=== PATIENT | male | born 2000 | race Caucasian/White ===

== ENCOUNTER 2019-08-20 15:42 | Emergency (ER) | payer OTHER, SELFPAY ==
--- NOTE | ~2019-08-20 | CT_ITS ---
EXAMINATION: CT abdomen pelvis w con DATE: 08/20/2019 19:06 INDICATION: Right lower quadrant abdominal pain. TECHNIQUE: Computed tomography (CT) of the abdomen and pelvis was performed with 100 mL Omnipaque-350 intravenous contrast. Automated exposure control and iterative reconstruction technique were employe d. The dose-length product was 184.48 mGy-cm. COMPARISON: None FINDINGS: Lung bases are clear. Visualized inferior heart is normal. No pericardial or pleural effusion. Liver, gallbladder, spleen, pancreas, right kidney and bilateral adrenal glands are normal. There are coupl e small wedge-shaped regions of decreased enhancement in the left kidney which could be related to pr ior infarct or area arthritis, either acute or chronic. No bowel obstruction or abnormal bowel wall t hickening. There is subtle stranding in the fat in the anterior right hemipelvis which was positione d caudal to the normal-appearing pancreas. The stranding in the fat extends into a small right inguin al hernia. Bladder is normal. No free intraperitoneal gas or fluid. No pathologically enlarged abdomi nal or pelvic lymphadenopathy. Lumbar levoscoliosis. Osteochondromas at the bilateral femoral necks. IMPRESSION: 1. Fat-containing right inguinal hernia with subtle stranding of the fat immediately proximal to and within the hernia. The nearby appendix appears normal. 2. A couple small wedge-shaped regions of hypoenhancement in the left kidney which could represent se quela of prior infarcts or age-indeterminate infection. Correlate with urinalysis. 3. 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 Reviewed, dictated and finalized at location A. [employer] IMPRESSION: 1. Fat-containing right inguinal hernia with subtle stranding of the fat immedi ately proximal to and within the hernia. The nearby appendix appears normal. 2. A couple small wedge-shaped regions of hypoenhancement in the left kidney wh ich could represent sequela of prior infarcts or age-indeterminate infection. C orrelate with urinalysis. 3. 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
[2019-08-20 16:52] VITALS: BP 130/76; PULSE 85; RESP 16; TEMP 37.1; O2SAT 99
[2019-08-20 17:04] LABS: Basophils Percent Auto 0.5 % (0.2-1.2); Eosinophils Absolute Auto 0.1 K/mm3 (0-0.3); Eosinophils Percent Auto 1.5 % (0-4.4); Hematocrit 46.7 % (42.0-52.0); Hemoglobin 15.2 g/dL (14.0-18.0); Immature Granulocyte Absolute 0.02 K/mm3 (0.00-0.031); Immature Granulocyte Percent A 0.2 % (0-0.5); Lymphocytes Absolute Auto 1.94 K/mm3 (0.9-3.2); Lymphocytes Percent Auto 23.7 % (18.3-44.2); Mean Corpuscular HGB Conc 32.5 g/dl (32-36); Mean Corpuscular Hemoglobin 29.3 pg (26-34); Mean Corpuscular Volume 90.2 fl (80-100); Mean Platelet Volume 9.1 fl (7.4-10.4); Monocytes Absolute Auto 0.6 K/mm3 (0.1-0.6); Monocytes Percent Auto 7.8 % (2.6-8.5); Neutrophils Absolute Auto 5.4 K/mm3 (1.3-6.7); Neutrophils Percent Auto 66.3 % (45.5-73.1); Platelet Count Result 269 k/mm3 (150-375); Red Blood Count 5.18 M/mm3 (4.6-6.20); Red Cell Distribution Width 12.2 % (11.5-14.5); White Blood Count 8.2 K/mm3 (4.5-10.0)
[2019-08-20 17:15] LABS: Alanine Aminotransferase 15 U/L (4-50); Alkaline Phosphatase 69 U/L (38-126); Aspartate Amino Transferase 26 U/L (17-59); Bilirubin,Total 0.4 mg/dL (0.2-1.3); Blood Urea Nitrogen 16 mg/dL (9-20); Calcium 9.2 mg/dL (8.4-10.2); Carbon Dioxide 25 mmol/L (22-30); Chloride 101 mmol/L (98-107); Estimated Glomerular Filt Rate > 60; Glucose 102 mg/dL (75-110); Lipase 50 U/L (23-300); Potassium 3.8 mmol/L (3.4-5.0); Sodium 140 mmol/L (137-145)
[2019-08-20 18:50] VITALS: BP 142/78; PULSE 73; RESP 16; O2SAT 99
[2019-08-20 18:50] LABS: Add Urine Microscopic? NO; Appearance Urine Clear (Clear); Bilirubin Urine Negative (Negative); Blood Urine Negative (Negative); Color Urine Straw (Yellow); Glucose Urine UA Negative (Negative); Ketones Urine Negative (Negative); Leukocyte Esterase Ur Negative LEU/UL (Negative); Nitrate Urine Negative (Negative); Protein Urine Negative (Negative); Specific Grav Ur 1.013 (1.001-1.035); Urobilinogen Urine Negative mg/dL (<2.0)
--- NOTE | 2019-08-20 18:52 | ED.ABDPAIN ---
HPI - Abdominal Pain General Chief Complaint: Abdominal Pain Stated Complaint: abd pain Time Seen by Provider: 08/20/19 18:40 Source: patient and family Mode of arrival: ambulatory History of Present Illness HPI narrative: 19 yo male with h/o multiple osteochondromas who presents for evaluation right lower abdominal pain. Patient states he has had this constant pain for 1 year but it has gradually worsened over the past 1 week. His pain is severe today and it is making him double over. He has take ibuprofen for his pain without relief. He states he does alot of lifting at work and he believes this may have been causing his pain. He denies any swelling, nausea, vomiting, fever or diarrhea. MD elicited complaint: abdominal pain Onset (ago): year(s) (1) Pain Consistency: constant Location: RLQ Severity: severe Quality: stabbing Exacerbating factors: movement Relieving factors: nothing Associated symptoms: denies other symptoms Treatments prior to arrival: NSAIDs Related Data Allergies Allergy/AdvReac Type Severity Reaction Status Date / Time No Known Allergies Allergy Verified 08/20/19 18:49 Review of Systems Review of Systems: All systems reviewed & are unremarkable except as noted in HPI and below Constitutional: Constitutional: Denies chills and Denies fever(s) Gastrointestinal: Gastrointestinal: Reports abdominal pain, Denies diarrhea, Denies nausea and Denies vomiting Musculoskeletal: Musculoskeletal: Denies back pain PMFSH Past Medical History Medical History Osteochondroma Surgical History Surgical History History of shoulder surgery Exam Narrative: Exam Narrative: GENERAL: small stature for age well-nourished, patient holding right side abdomen HEAD: Normocephalic, atraumatic EYES: PERRLA and EOMI, conjunctiva clear without discharge THROAT:Mucous membranes moist, Oropharynx normal without erythema, exudate, peritonsillar swelling or fluctuance NECK: Supple, without lymphadenopathy or mass RESPIRATORY: No respiratory distress, Airway patent, Respirations non-labored, Clear to auscultation without rales, rhonchi or wheeze HEART: Regular rate and rhythm. No murmur heard. Normal peripheral pulses. ABDOMEN: Soft, RLQ tenderness, nondistended, normal active bowel sounds. No masses. No rebound or guarding, No organomegaly. EXTREMITIES: No edema, normal strength SKIN: Warm, dry, normal color without rash NEURO: Alert and oriented x3. CN 2-12 grossly intact. No focal deficits. PSYCH: Normal mood and affect. GI: GI Palp: No Hernia present : General: Yes no CVA tenderness Scrotum: no scrotal swelling Testes: no testicular swelling and no testicular tenderness Course Reevaluation(s) Reevaluation #1: I discussed with patient and his mother that CT shows normal appendix and right inguinal hernia. His pain is not located at his hernia location nut at RLQ near McBurneys's. He has no testicular swelling or tenderness to suggest torsion. His labs are normal. Date: 08/20/19 Time: 20:31 Consultations Consultation #1: I discussed CT and case with Dr. Cohen. he states patient CT shows normal appendix so nothing emergent. He can follow up in clinic or with PCP Date: 08/20/19 Time: 19:56 Vital Signs Vital signs: Vital Signs Temperature 98.8 F 08/20/19 16:52 Pulse Rate 85 08/20/19 16:52 Respiratory Rate 16 08/20/19 16:52 Blood Pressure 130/76 08/20/19 16:52 Pulse Oximetry 99 08/20/19 16:52 Temperature 98.8 F 08/20/19 16:52 Pulse Rate 85 08/20/19 19:52 Respiratory Rate 17 08/20/19 19:52 Blood Pressure 122/75 08/20/19 19:52 Pulse Oximetry 96 08/20/19 19:52 MDM - Abdominal Pain Lab Data Attestation: I reviewed the patient's lab results. Result diagrams: 08/20/19 16:58 08/20/19 16:58 Labs: Lab Results 08/20/19
[2019-08-20] MEDS: MORPHINE SULFATE 2 MG/ML INJ IV PUSH (19:09)
[2019-08-20 19:10] VITALS: BP 133/76; PULSE 85; RESP 16; O2SAT 100
[2019-08-20] MEDS: ONDANSETRON INJ 4 MG/2 ML VIAL IV PUSH (19:10)
--- NOTE | 2019-08-20 19:14 | PC.NURSE ---
PT REPORT GIVEN TO CHRIS AT THIS TIME.
[2019-08-20 19:52] VITALS: BP 122/75; PULSE 85; RESP 17; O2SAT 96
[2019-08-20 20:42] VITALS: BP 120/85; PULSE 88; RESP 17; TEMP 36.2; O2SAT 100
== END 2019-08-20 20:43 | disposition home or self-care (01) ==
PROVIDERS: Emergency Medicine; Emergency Provider General Practice
DX: R10.31 Right lower quadrant pain (principal); K40.90 Unilateral inguinal hernia, without obstruction or gangrene, not specified as recurrent; D16.22 Benign neoplasm of long bones of left lower limb; D16.21 Benign neoplasm of long bones of right lower limb
CPT/HCPCS: 36415; 74177; 80053; 81003; 83690; 85025; 96374; 96375; 99284; J2270; J2405; Q9967

== ENCOUNTER 2019-12-27 13:22 | Emergency (ER) | payer OTHER, SELFPAY ==
[2019-12-27 13:32] VITALS: BP 130/63; PULSE 74; RESP 16; TEMP 36.6; O2SAT 100
--- NOTE | 2019-12-27 14:18 | ED.GENADULT ---
HPI - General Adult General Chief complaint: Animal Bite <Lonny Dixon PA-C - Last Filed: 12/27/19 14:22> Stated complaint: dog bite <AZUL Arreola Last Filed: 12/27/19 14:22> Time Seen by Provider: 12/27/19 13:32 <AZUL Arreola Last Filed: 12/27/19 14:22> Source: patient <AZUL Arreola Last Filed: 12/27/19 14:22> Mode of arrival: ambulatory <AZUL Arreola Last Filed: 12/27/19 14:22> Limitations: no limitations <oLnny Dixon PA-C - Last Filed: 12/27/19 14:22> History of Present Illness HPI narrative: Patient is a 19-year-old male who presents to emergency department for evaluation of dog bite to the left gluteus that occurred just prior to arrival patient was in his neighbors yard when he was bit by his neighbors dog patient notes his immunizations to be up-to-date to include tetanus patient on arrival to emergency department in the room in no distress noting mild discomfort. Patient notes his tetanus to be up-to-date and has no other complaints <Lonny Dixon PA-C - Last Filed: 12/27/19 14:22> Related Data Allergies/adverse reactions: Allergies Allergy/AdvReac Type Severity Reaction Status Date / Time No Known Allergies Allergy Verified 09/10/19 14:15 <Lonny Dixon PA-C - Last Filed: 12/27/19 14:22> Review of Systems Review of Systems: All systems reviewed & are unremarkable except as noted in HPI and below <Lonny Dixon PA-C - Last Filed: 12/27/19 14:22> PMFSH Past Medical History Medical History: Medical History Anxiety Osteochondroma <AZUL Arreola Last Filed: 12/27/19 14:22> Surgical History Surgical History: Surgical History History of shoulder surgery tumor removed <AZUL Arreola Last Filed: 12/27/19 14:22> Social History Social History: Social History Smoking status: Never smoker Alcohol intake: never Substance use: never Gender identity (if verbalized by the patient): Male <Lonny Dixon PA-C - Last Filed: 12/27/19 14:22> Exam Narrative: Exam Narrative: GENERAL: Well-appearing, well-nourished, and in no acute distress. HEAD: Normocephalic, atraumatic. EYES: PERRLA and EOMI. ENT: Nares clear, no rhinorrhea or epistaxis. Mucous membranes moist. EXTREMITIES: Normal range of motion. No edema. SKIN: Warm, dry, no rash. Puncture wound and abrasion of the lower aspect of the gluteus NEURO: No focal deficits. Alert and oriented x3. Normal speech and gait PSYCH: Normal mood and affect. <Lonny Dixon PA-C - Last Filed: 12/27/19 14:22> Course Course Emergency Course: Patient with superficial puncture wound felt appropriate for outpatient reevaluation agreeing to follow-up as directed or to return if symptoms worsen or concerns <Lonny Dixon PA-C - Last Filed: 12/27/19 14:22> Vital Signs Vital signs: Vital Signs Temperature 98 F 12/27/19 13:32 Pulse Rate 74 12/27/19 13:32 Respiratory Rate 16 12/27/19 13:32 Blood Pressure 130/63 12/27/19 13:32 Pulse Oximetry 100 12/27/19 13:32 Temperature 98.5 F 12/27/19 14:28 Pulse Rate 86 12/27/19 14:28 Respiratory Rate 16 12/27/19 14:28 Blood Pressure 126/72 12/27/19 14:28 Pulse Oximetry 100 12/27/19 14:28 <Lonny Dixon PA-C - Last Filed: 12/27/19 14:22> Vital Signs Temperature 98 F 12/27/19 13:32 Pulse Rate 74 12/27/19 13:32 Respiratory Rate 16 12/27/19 13:32 Blood Pressure 130/63 12/27/19 13:32 Pulse Oximetry 100 12/27/19 13:32 Temperature 98.5 F 12/27/19 14:28 Pulse Rate 86 12/27/19 14:28 Respiratory Rate 16 12/27/19 14:28 Blood Pressure 126/72 12/27/19 14:28 Pulse Oximetry 100 12/27/19 14:28 <Jennifer Ernst
[2019-12-27 14:28] VITALS: BP 126/72; PULSE 86; RESP 16; TEMP 36.9; O2SAT 100
== END 2019-12-27 14:29 | disposition home or self-care (01) ==
PROVIDERS: Emergency Provider General Practice
DX: S31.825A Open bite of left buttock, initial encounter (principal); D16.9 Benign neoplasm of bone and articular cartilage, unspecified; W54.0XXA Bitten by dog, initial encounter
CPT/HCPCS: 99282

== ENCOUNTER 2020-04-01 17:35 | Emergency (ER) | payer OTHER, SELFPAY ==
--- NOTE | ~2020-04-01 | XR_ITS ---
EXAMINATION: XR lumbar spine 2-3V DATE: 04/01/2020 20:42 INDICATION: Low back pain TECHNIQUE: Anteroposterior and lateral views of the lumbar spine, and cone-down lateral view of the l umbosacral junction were obtained. COMPARISON: 11/18/2015 FINDINGS: There is no fracture, dislocation, or subluxation. The vertebral body heights, alignment, a nd intervertebral disc spaces are normal. The paravertebral soft tissues are unremarkable. IMPRESSION: 1. No acute osseous abnormality. Reviewed, dictated and finalized at location A.
--- NOTE | ~2020-04-01 | XR_ITS ---
EXAMINATION: XR thoracic spine 3V DATE: 04/01/2020 20:42 INDICATION: Back pain TECHNIQUE: AP, lateral and lateral swimmer's views of the thoracic spine were obtained. COMPARISON: None. FINDINGS: There is no fracture, dislocation, or subluxation. The vertebral body heights, alignment, a nd intervertebral disc spaces are normal. The paravertebral soft tissues are unremarkable. IMPRESSION: 1. No acute osseous abnormality. Reviewed, dictated and finalized at location A.
[2020-04-01 17:53] VITALS: BP 115/63; PULSE 95; RESP 14; TEMP 37; O2SAT 100
[2020-04-01] MEDS: ACETAMINOPHEN 500 MG TABLET 1000 MG PO (20:55)
[2020-04-01] MEDS: diazePAM INJ (*CRX) 10 MG/2 ML SYRINGE 5 MG IM (20:55)
[2020-04-01 20:58] VITALS: BP 116/92; PULSE 63; RESP 17; O2SAT 99
--- NOTE | 2020-04-01 21:03 | ED.BACK ---
HPI - Back Pain/Injury General Chief Complaint: Back Pain/Injury Stated Complaint: back pain Time Seen by Provider: 04/01/20 20:08 Source: patient Mode of arrival: ambulatory Limitations: no limitations History of Present Illness HPI Narrative: This is a 20 year old male that presents to the ER for mid-low back pain since last night. 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 Reports he was bending over a lot. Reports since he has had mid-low back pain. No certain injury or trauma. He took ibuprofen with little relief. Denies saddle anesthesia, or bowel/bladder incontinence. Related Data Allergies Allergy/AdvReac Type Severity Reaction Status Date / Time No Known Allergies Allergy Verified 09/10/19 14:15 Review of Systems Review of Systems: Narrative: CONSTITUTIONAL: Denies fever MUSCULOSKELETAL: Reports back pain, joint pain, and myalgia. NEUROLOGIC: Denies numbness, or weakness. All systems reviewed & are unremarkable except as noted in HPI and below PMFSH Social History Social History Smoking status: Never smoker Alcohol intake: never Substance use: never Gender identity (if verbalized by the patient): Male Exam Narrative: Exam Narrative: GENERAL: Well-appearing, well-nourished, and in no acute distress. HEAD: Normocephalic, atraumatic. EYES: EOMI. CHEST: Clear to auscultation. No respiratory distress. No wheezes rales or rhonchi HEART: Regular rate and rhythm. No murmur heard. Normal peripheral pulses. BACK: No midline spinal tenderness. Tender to palpation of thoracic and lumbar paraspinal musculature EXTREMITIES: Normal range of motion. No edema. Strength equal in bilateral upper and lower extremities SKIN: Warm, dry, no rash. NEURO: No focal deficits. Alert and oriented x3. Normal gait PSYCH: Normal mood and affect Course Vital Signs Vital signs: Vital Signs Temperature 98.6 F 04/01/20 17:53 Pulse Rate 95 04/01/20 17:53 Respiratory Rate 14 04/01/20 17:53 Blood Pressure 115/63 04/01/20 17:53 Pulse Oximetry 100 04/01/20 17:53 Temperature 98.6 F 04/01/20 17:53 Pulse Rate 63 04/01/20 20:58 Respiratory Rate 17 04/01/20 20:58 Blood Pressure 116/92 H 04/01/20 20:58 Pulse Oximetry 99 04/01/20 20:58 MDM - Back Pain/Injury MDM Narrative Medical decision making narrative: Patient presents to the emergency department for mid to low back pain. No certain injury or trauma. Patient does report he was leena yesterday. No midline spinal tenderness. Patient is tender to palpation of the paraspinal musculature. Thoracic and lumbar spine x-rays are without acute findings. Patient reports improvement with Tylenol and Valium. Patient was instructed on care of muscle strain. He is to follow-up with primary care doctor. He was given warnings to return to the ER Imaging Data Radiologist's impression: ITS Impressions Thoracic Spine X-Ray 04/01/20 21:19 IMPRESSION: 1. No acute osseous abnormality. Lumbar Spine X-Ray 04/01/20 21:21 IMPRESSION: 1. No acute osseous abnormality. Critical Care Time Critical Care Time Critical Care Time: No Discharge Plan Discharge Clinical Impression: Strain of lumbar region Qualifiers: Encounter type: initial encounter Qualified Code(s): S39.012A - Strain of muscle, fascia and tendon of lower back, initial encounter Patient Disposition: Home, Self-Care Condition: Stable Instructions: Muscle Strain (ED) Additional Instructions: Return to the ER if you experience weakness, numbness, bowel/bladder incontinence, or any other symptoms that are concerning to you Rest, use ice/heat, take anti-inflammatories (Aleve, Ibuprofen, Naproxen, etc) or Tylenol as needed for pain as well as muscle relaxer (diazepam) as needed for pain. Muscle relaxers can make you drowsy, do not drive if you take this Follow up with your primary care doctor Pres
[2020-04-01 22:18] VITALS: BP 115/71; PULSE 53; RESP 17; O2SAT 100
== END 2020-04-01 22:19 | disposition home or self-care (01) ==
PROVIDERS: Emergency Provider Emergency Medicine
DX: S39.012A Strain of muscle, fascia and tendon of lower back, initial encounter (principal); X50.0XXA Overexertion from strenuous movement or load, initial encounter
CPT/HCPCS: 72072; 72100; 96372; 99283; A9270; J3360

== ENCOUNTER 2021-02-06 13:47 | Emergency (ER) | payer OTHER, SELFPAY ==
[2021-02-06 14:13] VITALS: BP 131/66; PULSE 78; RESP 18; TEMP 36.1; O2SAT 100
--- NOTE | 2021-02-06 14:43 | ED.WOUNDLAC ---
HPI - Wound/Laceration General Chief Complaint: Wound/Laceration Stated Complaint: facial lac Time Seen by Provider: 02/06/21 14:43 History of Present Illness HPI narrative: 20 yo male presents to the ED for a laceration. He struck his chin on the edge of a microwave door while moving it. He sustained a small laceration to the left side of the chin. Minimal pain. Bleeding controlled. tetanus shot within 5 years. Related Data Home Medications Medication Instructions Recorded Confirmed No Home Medications 02/06/21 02/06/21 Allergies Allergy/AdvReac Type Severity Reaction Status Date / Time No Known Allergies Allergy Verified 02/06/21 14:52 Review of Systems Review of Systems: All systems reviewed & are unremarkable except as noted in HPI and below PMFSH Past Medical History Medical History (Updated 02/06/21 @ 15:25 by Miguel A Samaniego MD) Anxiety Osteochondroma Surgical History Surgical History History of shoulder surgery tumor removed Family History Family History Unknown Hypertension Social History Social History Smoking status: Never smoker Alcohol intake: never Substance use: never Gender identity (if verbalized by the patient): Male Exam Const: General: healthy appearing, no acute distress and alert Orientation/consciousness: patient oriented x3 HENMT: Head: laceration (left chin, 2 cm) Resp: Effort & Inspection: normal respiratory effort Skin: General skin exam: normal color Neuro: General: patient oriented x3 and moves all extremities Speech: normal speech Gait exam (Neuro): Normal gait present Extrem: General: normal to inspection Psych: Appearance: grossly normal Mental Status: mental status grossly normal Affect: normal affect Course Vital Signs Vital signs: Vital Signs Temperature 36.1 C L 02/06/21 14:13 Pulse Rate 78 02/06/21 14:13 Respiratory Rate 18 02/06/21 14:13 Blood Pressure 131/66 02/06/21 14:13 Pulse Oximetry 100 02/06/21 14:13 Temperature 36.2 C L 02/06/21 15:51 Pulse Rate 74 02/06/21 15:51 Respiratory Rate 18 02/06/21 15:51 Blood Pressure 132/89 02/06/21 15:51 Pulse Oximetry 99 02/06/21 15:51 Procedures Laceration Laceration 1: Date: 02/06/21 Time: 15:23 Site: face Size (cm): 2 Description: linear Depth: simple, single layer Local Anesthetic: lidocaine 1% and with epi Amount of anesthesia used (mL): 2 Pre-repair: wound explored and irrigated ====== Skin Level ====== Skin layer closed with: other (fast gut) Size (cm): 5-0 Number of sutures: 3 Technique: simple, interrupted ====== Subcutaneous Layer ====== ====== Muscle Layer ====== ====== Tendon Layer ====== MDM - Wound/Laceration Differential Diagnosis Differential diagnosis: Likely laceration Medical Records Attestation: I reviewed the patient's medical records. Discharge Plan Discharge Clinical Impression: Facial laceration Patient Disposition: Home, Self-Care Condition: Stable Instructions: Laceration (ED), Care For Your Absorbable Stitches (ED) Prescriptions: No Action No Home Medications RF: 0 Follow-up/Referrals: Abdulaziz Simpson MD [Physician] - PHYSICIAN,DIRECTOR OF CORPORATE SALES [Primary Care Provider] -
[2021-02-06 15:51] VITALS: BP 132/89; PULSE 74; RESP 18; TEMP 36.2; O2SAT 99
== END 2021-02-06 15:51 | disposition home or self-care (01) ==
PROVIDERS: Emergency Provider Emergency Medicine
DX: S01.81XA Laceration without foreign body of other part of head, initial encounter (principal); F41.9 Anxiety disorder, unspecified; W22.8XXA Striking against or struck by other objects, initial encounter
CPT/HCPCS: 12011; 99282

== ENCOUNTER 2023-01-11 01:35 | Day surgery (SDC) | payer OTHER, SELFPAY ==
[2023-01-06 12:32] VITALS: BMI 21.7
--- NOTE | 2023-01-06 12:36 | PC.NURSE ---
Report to the Outpatient Waiting Room, entrance under the green pavilion located off [address] [facility], at time 9:30 on date 01/11/23. Planned Procedure Time: 11:30. Time changes happen often and if your time is changed the preop area will call you the afternoon before. - You and your visitor will be asked to self-screen and do not enter if you have any COVID symptoms. - A mask is optional within the hospital at this time. Patients may have clear liquids (water, carbonated beverages, clear teas, apple juice) until 3 hours prior to surgery with a maximum of 20 ounces. - No food from midnight until time of surgery Take the following medications with a SIP of water the morning of surgery: NONE DO NOT STOP ANY OF YOUR OTHER PRESCRIPTION MEDICATIONS PRIOR TO SURGERY ?EXCEPT THE FOLLOWING Medications to discontinue per physician: IBUPROFEN Date to take last dose: PER DR. ALLEN Please no make-up, nail luxembourgish, hairspray, perfume, deodorant, or body powder the day of surgery. No jewelry (including any body piercings) or valuables the day of surgery, leave them at home. Please take a shower or bath the night before, or the morning of, surgery with an antibacterial soap (HIBICLENS). Wear comfortable, loose fitting clothing. - Jewelry must be removed prior to entering the operating room. Rings and piercings that are not removed may be cut off. - The hospital will not accept responsibility for valuables. - Please leave all valuables, including medications, at home the day of surgery. If you are going home after surgery, a licensed explosives truck driver must drive you home. - NO public transportation without another adult if you receive anesthesia. - We recommend that an adult stay with you for 24 hours following discharge. - We also recommend that you do not drive, make important decision, drink alcoholic beverages, or take any drugs that were not prescribed by your health care provider for at least 24 hours after your discharge time. Follow any additional instructions given to you from your surgeon. If you or anyone in your household have experienced Covid symptoms in the past week, please notify your surgeon or the nurse liaison at the phone number below for possible testing. Telephone instructions given to PT - CRISS BERRIOS and asked if any additional questions and then verbalized understanding. Patient advised to call surgeon office or pre surgery nurse liaison [phone] if any additional questions.
--- NOTE | 2023-01-10 15:17 | WPDANESEPPF ---
Anes - Initial Pre Proc Eval Procedure: Operation Date: 01/11/23 11:30 Proposed Procedures p Laparoscopic Right Inguinal Hernia Repair with Mesh, Davinci Assisted - Faraz Milligan DO Date/Time: 01/10/23 15:17 Surgeon: Faraz Milligan DO Pre Op Diagnosis: Rt Ing Hernia Patient Data Age: 22 Gender: M Height: 1.5 m Weight: 48.75 kg Allergies Allergy/AdvReac Type Severity Reaction Status Date / Time No Known Allergies Allergy Verified 01/11/23 09:38 Home Medications Medication Instructions Recorded Confirmed Type ibuprofen 600 mg tablet 600 mg PO QID PRN Pain 01/06/23 01/11/23 History Patient hx anesthesia problems: none Family hx anesthesia problems: none Results Review: All pre-operative results and documents have been reviewed as part of the pre-operative evaluation. [facility] Past Medical History Medical History (Updated 01/10/23 @ 15:17 by Erick Rod MD) Anxiety SARAH (obstructive sleep apnea) Osteochondroma Surgical History Surgical History History of shoulder surgery tumor removed Family History Family History Unknown Hypertension Social History Social History Smoking status: Never smoker Alcohol intake: current Alcohol use details: VERY RARE Substance use: current Substance use type: marijuana Living arrangements: with family Occupation/Education: unemployed Gender identity (if verbalized by the patient): Male Spiritual care concerns: No Anes - Eval Final PreProcedure Day of Procedure 01/10/23 15:17 Patient weight: normal Heart: regular rate and rhythm Lungs: clear to auscultation and normal air movement Airway: Mallampati scale class II Neurological: alert and oriented Last oral intake: >/= 8 hours ASA classification: II Emergent: no Anesthetic plan: proceed Anesthesia type and monitoring: general ETT Results Review: All pre-operative results and documents have been reviewed as part of the pre-operative evaluation. Informed Consent: The patient's anesthetic plan and its attendant risks and benefits were discussed with the patient/family/POA. Questions were solicited and answers provided to the satisfaction of the patient/family/POA.
[2023-01-11] VITALS (12 sets, daily range): BP systolic 107–145; BP diastolic 50–83; PULSE 51–103; RESP 15–20; TEMP 36.2–37.2; O2SAT 98–100
[2023-01-11] MEDS: ACETAMINOPHEN 500 MG TABLET 1000 MG PO (10:00)
[2023-01-11] MEDS: LACTATED RINGERS 1,000 ML 30 ML IV CONT ×4 (10:10→17:00)
[2023-01-11] MEDS: KETOROLAC 15 MG/ML VIAL (*BKC) IV PUSH (11:09)
--- NOTE | 2023-01-11 11:49 | WPDHPUPDATE1 ---
History and Physical Update Update Date/Time: 01/11/23 11:49 History and Physical has been reviewed, including an updated exam of the patient. There are NO changes in the patient's condition. Risks, benefits, and alternatives have been discussed and questions answered. Patient agrees to proceed with procedure.
[2023-01-11] MEDS: ceFAZolin 2 GM/D5W 50 ML 2 GM/50 ML BAG IVPB (12:22)
[2023-01-11] MEDS: BUPIVACAINE/EPINEPHRINE 0.25% 50 ML VIAL 30 ML INFILTRATE (13:05)
[2023-01-11] MEDS: fentaNYL CITRATE INJ (*CRX) 100 MCG/2 ML VIAL 25 MCG IV PUSH ×3 (14:13→16:25)
[2023-01-11] MEDS: ONDANSETRON INJ 4 MG/2 ML VIAL IV PUSH (14:37)
--- NOTE | 2023-01-11 14:56 | W.PM.PROC2 ---
Procedure Note - Detailed Date of Procedure 01/11/23 Pre-op Diagnosis Right inguinal hernia Post-op Diagnosis Same (Indirect right inguinal hernia) Procedure Performed Laparoscopic right inguinal hernia repair with mesh, da Domonique assisted Surgeon Faraz Milligan, Anesthesia General and Local (0.5% bupivacaine with epinephrine) Indications This is a 22-year-old man who presented with intermittent right groin pain over the past several years. This was minimally noticed at 1st, but over time he has no noticed a bulge and worsening pain. It is reducible. He had a prior CT which showed evidence of a right inguinal hernia. Discussions were made with the patient about treatment options and decision was made to proceed with laparoscopic right inguinal hernia repair with mesh, de Domonique assisted. Findings Laparoscopic right inguinal hernia repair was performed. The patient was found to have a moderate-sized indirect right inguinal hernia with hernia sac extending all the way into the scrotum. There was no evidence of left inguinal hernia. A robotic transabdominal preperitoneal approach was utilized for repair. A medium 3DMax mid mesh was placed within the preperitoneal pocket overlying the entire right myopectineal orifice. No specimens were obtained for pathology. Description of Procedure Procedure as well as risks, benefits, and alternatives were discussed with the patient. Written consent was obtained and placed in chart prior to procedure. Patient was brought back to surgical suite. He was placed supine on operating table. Time-out was done to confirm patient and procedure. He was then intubated by Anesthesia Department. His abdomen was prepped and draped in sterile fashion using chlorhexidine prep. 0.5% bupivacaine with epinephrine was infiltrated at each location for incision. A 12 millimeter transverse incision was made just superior to the umbilicus using a 15 blade scalpel. Blunt dissection was carried out down to the linea alba. A vertical incision was made at the linea alba using a 15 blade scalpel. The peritoneum was then bluntly entered. A 12 millimeter trocar was inserted and carbon dioxide insufflation was used to create a pneumoperitoneum. A camera was inserted and the abdominal cavity was inspected. The patient was placed in slight Trendelenburg position. An 8 millimeter incision was made on the right lateral abdomen and an 8 millimeter trocar was inserted under direct visualization. Another 8 millimeter incision was made in the left lateral abdomen and an 8 millimeter trocar was inserted under direct visualization. The robotic arms were brought up to the patient's bedside and secured to the ports. The camera and instruments were inserted. I then moved over to the robotic console and took control of the camera and instruments. After careful inspection of the abdominal cavity, I began scoring the peritoneum along the right lower quadrant using scissors with electrocautery. The preperitoneal plane was entered and this was carefully dissected caudally along the inferior epigastric vessels. Careful dissection with scissors with electrocautery and blunt dissection was used to continue this dissection. I dissected far enough laterally to allow for mesh placement, and also dissected medially to identify the pubic arch and Frankie's ligament. The hernia sac was identified and carefully dissected posteriorly. The cord contents were also identified and the peritoneum was carefully dissected far enough posteriorly to allow for mesh placement. Once an adequate pocket was created, I then placed the mesh within the preperitoneal pocket and carefully unfolded it. The mesh was centered on the hernia defect with adequate overlap circumferentially. The inferior edge of the mesh was inspected to ensure that it was far enough away from the peritoneal edge. The mesh appeared in proper position overlying the entire myopectineal orifice. The mesh was se
[2023-01-11] MEDS: oxyCODONE HCL (*CRX) 5 MG TAB IR PO (15:12)
[2023-01-11] MEDS: diphenhydrAMINE HCl INJ 50 MG/ML VIAL 25 MG IV PUSH (15:45)
[2023-01-11] MEDS: SCOPOLAMINE 1.5 MG PATCH TRANSDERM (15:45)
--- NOTE | 2023-01-11 16:15 | SUR.PHASEII ---
Pt. ambulated to bathroom. No void yet. Pt. back to bed, LR hung, encouraging PO fluids.
--- NOTE | 2023-01-11 16:55 | SUR.PHASEII ---
1655 - pt. ambulated to bathroom again. No void yet. Bladder scan shows 350mL. MD Milligan notified. New orders to wait one more hour, then call back if no void in that time.
--- NOTE | 2023-01-11 18:08 | SUR.PHASEII ---
1751-pt voided, states feels much better and requests to discharge.
== END 2023-01-11 18:00 | disposition home or self-care (01) ==
PROVIDERS: PCP Nurse Practitioner Family; Visit Provider Surgery
PROC: 8E0Y4CZ Robotic Assisted Procedure of Lower Extremity, Percutaneous Endoscopic Approach (ICD-10-PCS; CPT 49650; principal; 2023-01-11 11:30)
DX: K40.90 Unilateral inguinal hernia, without obstruction or gangrene, not specified as recurrent (principal); F12.90 Cannabis use, unspecified, uncomplicated
CPT/HCPCS: 49650; S2900; 36415; 86850; 86900; 86901; A9270; J0690; J1100; J1170; J1200; J1885; J2250; J2405; J2704; J2710; J3010; J7120

== ENCOUNTER 2023-05-14 12:16 | Emergency (ER) | payer OTHER, SELFPAY ==
--- NOTE | ~2023-05-14 | XR_ITS ---
EXAMINATION: XR hand RT min 3V DATE: 05/14/2023 13:21 INDICATION: Right thumb laceration. TECHNIQUE: 3 views of right hand were obtained. COMPARISON: Right hand radiographs 03/06/2018 FINDINGS: Bone alignment is normal. No fracture. Again seen are osteochondromas of the distal radius and ulna. There is 5 mm negative ulnar variance. There is an osteochondroma of fifth distal phalanx. No fracture. Joint spaces are normal. IMPRESSION: 1. No fracture or radiopaque foreign body. Reviewed, dictated and finalized at location A. [employer]
[2023-05-14 12:22] VITALS: BP 123/82; PULSE 68; RESP 18; TEMP 36.2; O2SAT 100
[2023-05-14] MEDS: TETANUS,DIPHTHERIA,AC PERTUSSIS ADULT (0.5 ML) BOOSTRIX IM (13:21)
[2023-05-14] MEDS: KETOROLAC 30 MG/ML VIAL (*BKC) IM (13:22)
[2023-05-14] MEDS: LIDO 2%/EPINEPHRINE 1:100,000 20 ML VIAL (13:22)
[2023-05-14] MEDS: ACETAMINOPHEN 500 MG TABLET 1000 MG PO (13:22)
--- NOTE | 2023-05-14 13:43 | ED.GENADULT ---
HPI - General Adult General Chief complaint: Wound/Laceration Stated complaint: Laceration to Right Thumb Time Seen by Provider: 05/14/23 12:44 History of Present Illness HPI narrative: Saud Schaffer is a 23 y/o male who presents with reports of getting angry and broke a broom over his knee about an hour before arriving here and he accidentally cut his right thumb on the metal part of the handle of the broom. Related Data Allergies Allergy/AdvReac Type Severity Reaction Status Date / Time No Known Allergies Allergy Verified 05/14/23 12:31 Review of Systems Review of Systems: CONSTITUTIONAL: Denies fever, chills, or sweats. EYES: Denies visual changes, redness, or discharge. ENT: Denies rhinorrhea, congestion, sore throat, or otalgia. CARDIOVASCULAR: Denies chest pain, palpitations, or edema. RESPIRATORY: Denies cough or dyspnea. GASTROINTESTINAL: Denies abdominal pain, nausea, vomiting, or diarrhea. GENITOURINARY: Denies dysuria or hematuria. SKIN: Denies rash or itching. MUSCULOSKELETAL: cut right thumb to the apple aspect from a metal portion of a broom NEUROLOGIC: Denies headache, numbness, dizziness, or weakness. PSYCHIATRIC: Denies anxiety or depression. [facility] Past Medical History Medical History (Updated 05/14/23 @ 14:47 by Narcisa Beckwith APRN) Anxiety SARAH (obstructive sleep apnea) Osteochondroma Surgical History Surgical History History of shoulder surgery tumor removed S/P hernia repair lap right inguinal hernia repair with mesh, da Domonique assisted 01/11/23 Family History Family History Unknown Hypertension Social History Social History Smoking status: Never smoker Alcohol intake: current Alcohol use details: VERY RARE Substance use: current Substance use type: marijuana Living arrangements: with family Occupation/Education: unemployed Gender identity (if verbalized by the patient): Male Spiritual care concerns: No Exam Narrative: GENERAL: Well-appearing, well-nourished, and in no acute distress. HEAD: Normocephalic, atraumatic. EYES: PERRLA and EOMI. ENT: Nares clear, no rhinorrhea or epistaxis. Mucous membranes moist. Oropharynx without tonsillar hypertrophy exudate or other lesions. NECK: Supple. No adenopathy or masses. No carotid bruits or JVD CHEST: Clear to auscultation. No respiratory distress. No wheezes rales or rhonchi HEART: Regular rate and rhythm. No murmur heard. Normal peripheral pulses. ABDOMEN: Soft, nontender, nondistended, normal active bowel sounds. EXTREMITIES: 3.5 - 4cm laceration to the apple aspect of the right thumb SKIN: Warm, dry, no rash. NEURO: No focal deficits. Alert and oriented x3. PSYCH: Normal mood and affect. Course Vital Signs Vital signs: Vital Signs Temperature 36.2 C L 05/14/23 12:22 Pulse Rate 68 05/14/23 12:22 Respiratory Rate 18 05/14/23 12:22 Blood Pressure 123/82 05/14/23 12:22 Pulse Oximetry 100 05/14/23 12:22 Oxygen Delivery Room Air 05/14/23 12:22 Temperature 36.2 C L 05/14/23 12:22 Pulse Rate 68 05/14/23 12:22 Respiratory Rate 18 05/14/23 12:22 Blood Pressure 123/82 05/14/23 12:22 Pulse Oximetry 100 05/14/23 12:22 Oxygen Delivery Room Air 05/14/23 12:22 Procedures Laceration Laceration 1: Date: 05/14/23 Time: 15:03 Site: hand Side (If applicable): right Size (cm): 4 Description: linear Depth: simple, single layer Local Anesthetic: lidocaine 2% and with epi Amount of anesthesia used (mL): 3 Pre-repair: wound explored, irrigated and irrigated extensively ====== Skin Level ====== Skin layer closed with: nylon Size (cm): 4-0 Number of sutures: 6 Technique: simple, interrupted ====== Subcutaneous
[2023-05-14 15:08] VITALS: BP 118/72; PULSE 65; RESP 15; O2SAT 98
== END 2023-05-14 15:10 | disposition home or self-care (01) ==
PROVIDERS: Emergency Provider Nurse Practitioner Family; PCP Nurse Practitioner Family
DX: S61.011A Laceration without foreign body of right thumb without damage to nail, initial encounter (principal); Z23 Encounter for immunization; W26.8XXA Contact with other sharp object(s), not elsewhere classified, initial encounter
CPT/HCPCS: 12002; 73130; 90471; 90715; 96372; 99283; A9270; J1885

== ENCOUNTER 2024-02-01 13:28 | Emergency (ER) | payer OTHER, SELFPAY ==
--- NOTE | ~2024-02-01 | XR_ITS ---
EXAMINATION: XR knee LT 3V DATE: 02/01/2024 13:59 INDICATION: Left knee pain. TECHNIQUE: 3 views of left knee were obtained. COMPARISON: Left knee radiographs 09/02/2015 FINDINGS: Bone alignment is normal. No fracture. There are osteochondromas of distal femur, proximal tibia, and proximal fibula. Joint spaces are normal. No knee joint effusion. IMPRESSION: 1. Hereditary multiple osteochondromas. Reviewed, dictated and finalized at location A.
[2024-02-01 13:29] VITALS: BP 136/72; PULSE 73; RESP 16; TEMP 36.4; O2SAT 99
--- NOTE | 2024-02-01 14:21 | ED.GENADULT ---
HPI - General Adult General Chief complaint: Extremity Injury, Lower Stated complaint: left knee pain Time Seen by Provider: 02/01/24 13:37 History of Present Illness HPI narrative: 23-year-old male present to the emergency department for evaluation for left knee pain. Patient reports he was working in the [employer] and kick a ball and then had posterior left knee pain. Patient states he does have posterior leg tightness when attempting to straighten the leg. Patient denies any other pain or injury. Patient denies any prior history of surgery on the knee. Related Data Allergies Allergy/AdvReac Type Severity Reaction Status Date / Time No Known Allergies Allergy Verified 02/01/24 13:29 Review of Systems Review of Systems: All systems reviewed & are unremarkable except as noted in HPI and below PMFSH Past Medical History Medical History (Updated 02/02/24 @ 00:01 by Zamzam Roman) Anxiety SARAH (obstructive sleep apnea) Osteochondroma Surgical History Surgical History History of shoulder surgery tumor removed S/P hernia repair lap right inguinal hernia repair with mesh, da Domonique assisted 01/11/23 Family History Family History Unknown Hypertension Social History Social History Smoking status: Never smoker Alcohol intake: current Alcohol use details: VERY RARE Substance use: current Substance use type: marijuana Living arrangements: with family Occupation/Education: unemployed Gender identity (if verbalized by the patient): Male Spiritual care concerns: No Exam Narrative: APPEARANCE: Well appearing, no pain, no distress, well-nourished. HEAD: normocephalic, atraumatic. EYES: PERRLA/EOMI, conjunctivae clear. NOSE: Normal no drainage EARS:TMS clear with good light reflex. THROAT: Pharynx clear, no exudate. NECK: Supple. No adenopathy, no masses. RESPIRATORY: Airway patent, respirations nonlabored. Clear to auscultation bilaterally, no rales, rhonchi, wheezing. CARDIOVASCULAR: Regular rate and rhythm without murmurs rubs or gallops. ABDOMINAL: Soft, nontender, nondistended, normal bowel sounds MUSCULOSKELETAL: Tenderness to left medial distal upper leg, no ecchymosis, no deformity, no effusion, no tenderness to knee NEURO: Alert. Cranial nerves II through XII intact. Grossly intact SKIN: Warm, dry. Normal Color Course Vital Signs Vital signs: Vital Signs Temperature 97.6 F 02/01/24 13:29 Pulse Rate 73 02/01/24 13:29 Respiratory Rate 16 02/01/24 13:29 Blood Pressure 136/72 02/01/24 13:29 Pulse Oximetry 99 02/01/24 13:29 Oxygen Delivery Room Air 02/01/24 13:29 Temperature 97.6 F 02/01/24 13:29 Pulse Rate 73 02/01/24 13:29 Respiratory Rate 16 02/01/24 13:29 Blood Pressure 136/72 02/01/24 13:29 Pulse Oximetry 99 02/01/24 13:29 Oxygen Delivery Room Air 02/01/24 13:29 Medical Decision Making MDM Narrative Medical decision making narrative: 23-year-old male presenting to the emergency department for evaluation for posterior left knee pain, x-rays were negative for acute fracture dislocation. Suspect a muscular strain versus ligament injury. Patient will be provided knee immobilizer crutches for limited weight-bearing. Patient was told to have follow-up with his primary care physician. Differential Diagnosis Differential Diagnosis: Knee fracture, knee contusion, muscular strain Vital Signs Vital Signs: Vital Signs Temperature 97.6 F 02/01/24 13:29 Pulse Rate 73 02/01/24 13:29 Respiratory Rate 16 02/01/24 13:29 Blood Pressure 136/72 02/01/24 13:29 Pulse Oximetry 99 02/01/24 13:29 Oxygen Delivery Room Air 02/01/24 13:29 Temperature 97.6 F 02/01/24 13:29 Pulse Rate 73 02/01/24 13:29 Respiratory Rate 16 02/01/24 13:29 Blood Pressure 136/72
== END 2024-02-01 14:43 | disposition home or self-care (01) ==
PROVIDERS: Emergency Provider Emergency Medicine; PCP Nurse Practitioner Family
DX: S89.92XA Unspecified injury of left lower leg, initial encounter (principal); G47.33 Obstructive sleep apnea (adult) (pediatric); D16.22 Benign neoplasm of long bones of left lower limb; W21.89XA Striking against or struck by other sports equipment, initial encounter
CPT/HCPCS: 73562; 99283

== ENCOUNTER 2024-02-21 16:39 | Outpatient (CLI) | payer OTHER, SELFPAY ==
--- NOTE | ~2024-02-21 | CT_ITS ---
EXAMINATION: CT brain wo con DATE: 02/21/2024 17:08 INDICATION: Nonallopathic lesion of head. TECHNIQUE: Computed tomography (CT) of the head was performed without intravenous contrast. The mA wa s adjusted according to patient size. Iterative reconstruction technique was employed. The dose-lengt h product was 605.33 mGy-cm. COMPARISON: None FINDINGS: There is no intracranial hemorrhage, acute infarction, or abnormal intracranial mass lesion . 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 The ventricles are normal in size. The mastoid ai r cells are normal. The paranasal sinuses are clear. Plagiocephaly is noted. IMPRESSION: 1. Partial agenesis of the corpus callosum. Reviewed, dictated and finalized at location A.
== END 2024-02-21 16:40 | disposition home or self-care (01) ==
LOC: ANHIMG 16:40
PROVIDERS: PCP Nurse Practitioner Family; Visit Provider Nurse Practitioner Family
DX: Q04.0 Congenital malformations of corpus callosum (principal); M99.9 Biomechanical lesion, unspecified
CPT/HCPCS: 70450